=== PATIENT | female | born 1950 | race Two or more races ===

== ENCOUNTER 2016-12-29 06:46 | Day surgery (SDC) | payer OTHER ==
[~2016-12-29 06:46] MED LIST: FENTANYL 250 MCG/5 ML AMP IV PRN; IV START KIT ONE; LACTATED RINGERS 1,000 ML IV SCH; LACTATED RINGERS 1,000 ML ONE; MIDAZOLAM HCL 5 MG/5 ML VIAL IV PRN
[2016-12-29] MEDS ORDERED: MIDAZOLAM HCL 5 MG/5 ML VIAL ONE (07:46)
[2016-12-29] MEDS ORDERED: FENTANYL 250 MCG/5 ML AMP ONE (07:47)
--- NOTE | 2016-12-31 09:20 | SURGPATH ---
[facility] [address] [place] [id number] Patient Name: PIPPA MNACIA MR#: [id number] : 1950 Gender: F Specimen #: [id number] Collected: 12/29/2016 Received: 12/30/2016 Reported: 12/31/2016 Submitting Phys: DIANN CASTANEDA Copy To Phys: [facility] HEATHER PORTILLO JAMES P Clinical History / Pre-Operative Diagnosis: History of sigmoid adenocarcinoma resection Specimen Source / Surgical Procedure Performed: Sigmoid anastomosis biopsy at 15 cm Interpretation: SIGMOID COLON, ANASTOMOSIS AT 15 CM, BIOPSY: - NO PATHOLOGIC DIAGNOSIS Electronically Signed Out Brock Matthews M.D. Gross Description: The specimen is received in a formalin filled container labeled with the patient's name and "sigmoid anastomosis biopsy at 15 cm". Three pale gonzalez-hughes biopsies are 0.2, 0.3 and 0.3 cm. Totally embedded in one cassette. Bryn Mas, P.A. Microscopic Description: Levels reveal fragments of colonic mucosa with minimal architectural distortion and lamina propria edema. Dysplasia and malignancy are not present. 1: [id number] Z85.030
== END 2016-12-29 09:38 | disposition home or self-care (01) ==
LOC: SDC 06:46
PROVIDERS: ATTEND Internal Medicine Gastroenterology
PROC: 0DBN8ZX Excision of Sigmoid Colon, Via Natural or Artificial Opening Endoscopic, Diagnostic (ICD-10-PCS; principal; 2016-12-29)
DX: Z08 Encounter for follow-up examination after completed treatment for malignant neoplasm (principal); E03.9 Hypothyroidism, unspecified; Z90.49 Acquired absence of other specified parts of digestive tract; Z85.038 Personal history of other malignant neoplasm of large intestine
CPT/HCPCS: 45380; J3010; J2250; J7120